=== PATIENT | male | born 1980 | race Caucasian/White ===

== ENCOUNTER → 2024-09-02 10:54 | Outpatient (REF) | payer BC, SELFPAY | LOC: RAD 10:54 | PROVIDERS: ATTENDING PHYSICIAN Otolaryngology; FAMILY PHYSICIAN Family Medicine | DX: R05.8 Other specified cough (principal); R07.0 Pain in throat | CPT/HCPCS: 74221 ==

== ENCOUNTER → 2025-02-23 12:30 | Outpatient (REF) | payer BC, SELFPAY ==
[2025-02-23 12:55] VITALS: BMI 20.4
[2025-02-23 12:58] VITALS: BP 121/84; BP_SYST 63
[2025-02-23 14:03] VITALS: BP 110/82
== END ==
LOC: RADI 12:30
PROVIDERS: ATTENDING PHYSICIAN Orthopaedic Surgery Orthopaedic Surgery of the Spine
DX: M51.16 Intervertebral disc disorders with radiculopathy, lumbar region (principal)
CPT/HCPCS: 64483